=== PATIENT | female | born 1960 | race Caucasian/White ===

== ENCOUNTER → 2017-01-06 | Outpatient (CLI) | payer BC ==
[~2017-01-06] MED LIST: ALPR-385 PO; ASCA500 PO; ASPI1TAB72 PO; B-COTAB18 PO; CHOL200010 PO; FLUO20CA35 PO; MULT-884 PO; NRN300 PO; TRAM-10 PO; XPNIN INH
== END | disposition home or self-care (01) ==
LOC: C.PAPS 15:12
PROVIDERS: ATTEND Obstetrics & Gynecology
DX: Z01.419 Encounter for gynecological examination (general) (routine) without abnormal findings (principal)

== ENCOUNTER → 2017-07-12 | Outpatient (CLI) | payer OTHER | END | disposition home or self-care (01) | LOC: C.LAB 02:08 | DX: Z02.83 Encounter for blood-alcohol and blood-drug test (principal) ==

== ENCOUNTER 2023-03-15 15:47 | Inpatient (IN) ==
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
[2023-03-15 16:30] LABS: Hematocrit (blood only) 45.4 % (37.0-47.0); Hemoglobin 16.3 g/dl (12.0-16.0); Mean Corpuscular Hemoglobin 34.5 pg (25.0-34.0); Mean Corpuscular Hgb Conc 35.9 g/dL (32.0-36.0); Mean Corpuscular Volume 96.2 fL (80.0-100.0); Mean Platelet Volume 9.7 fL (9.4-12.4); Platelet Count 279 K/uL (130-400); RDW Coefficient of Variation 12.5 % (11.5-14.5); RDW Standard Deviation 44.8 fL (36.4-46.3); Red Blood Count 4.72 M/uL (4.20-5.40); White Blood Count 8.21 K/ul (4.8-10.8)
[2023-03-15 16:42] LABS: Acetaminophen < 3 ug/ml (10-30); Salicylate < 3.0 mg/dl (3.0-30)
[2023-03-15 16:45] LABS: Alanine Aminotransferase 39 U/L (7-52); Albumin Globulin Ratio 1.8 (0.9-2); Albumin Level 4.9 gm/dl (3.4-5.0); Alkaline Phosphatase 55 U/L (34-104); Anion Gap 17 (3-11); Aspartate Aminotransferase 59 U/L (13-39); BUN Creatinine Ratio 15.3 (10-20); Bilirubin,Total 0.4 mg/dl (0.2-1.0); Blood Urea Nitrogen 11 mg/dl (6-23); Calcium 9.5 mg/dl (8.6-10.3); Carbon Dioxide 21 mmol/L (21-32); Chloride 98 mmol/L (98-107); Est GFR (African American) 105.5 ml/min; Globulin 2.8 gm/dl (2.5-4.0); Glucose 70 mg/dl (70-99(Fasting)); Potassium 3.6 mmol/L (3.5-5.1); Sodium 136 mmol/L (136-145); Total Protein 7.7 gm/dl (6.0-8.3)
[2023-03-15 17:14] LABS: Basophils # (auto) 0.06 K/uL (0-0.2); Basophils % (auto) 0.7 %; Eosinophils # (auto) 0.05 K/uL (0-0.50); Eosinophils % (auto) 0.6 %; Immature Granulocytes # (auto) 0.01 K/uL (0.01-0.20); Immature Granulocytes % (auto) 0.1 %; Lymphocytes # (auto) 4.98 K/uL (1.2-3.4); Lymphocytes % (auto) 60.7 %; Monocytes # (auto) 0.55 K/uL (0.11-0.59); Monocytes % (auto) 6.7 %; Neutrophils # (auto) 2.56 K/uL (1.40-6.50); Neutrophils % (auto) 31.2 %; RBC Morphology Unremarkable
[2023-03-15] MEDS ORDERED: LORazepam 1 MG TAB SL STA ×2 (17:33→20:06)
[2023-03-15] MEDS ORDERED: LORazepam 1 MG TAB PO PRN ×3 (17:33)
[2023-03-15] MEDS ORDERED: Ativan PO Alcohol Withdrawal--Active Protocol PO PRN (17:33)
[2023-03-15] MEDS ORDERED: chlordiazePOXIDE HCl 25 MG CAP PO ONE (17:33)
[2023-03-15 20:16] LABS: Appearance Urine Clear (Clear); Bacteria Urine Automated Negative (Negative); Bilirubin Urine Negative (Negative); Blood Urine 1+ (Negative); Cast Urine Automated 0 /lpf (0-5); Color Urine Yellow; Epithelial Cell Urine Auto >30 /lpf (0-5); Glucose Urine UA Negative (Negative); Ketones Urine 1+ (Negative); Leukocyte Esterase Urine 2+ (Negative); Nitrite Urine Negative (Negative); Protein Urine Trace (Negative); RBC Urine Automated 0-4 /hpf (0-4); Specific Gravity Urine 1.009 (1.000-1.030); Urobilinogen Urine Negative (Negative); WBC Urine Automated >30 /hpf (0-5); pH Urine 5.5 (4.5-7.5)
[2023-03-15 20:47] LABS: Amphetamines+Metham, Urine Neg (Neg); Barbiturates, Urine Neg (Neg); Benzodiazepine, Urine Pos (Neg); Cocaine, Urine Neg (Neg); MDMA (Ecstacy), Urine Neg (Neg); Methadone, Urine Neg (Neg); Opiate, Urine Neg (Neg); Phencyclidine, Urine Neg (Neg)
[2023-03-16] MEDS ORDERED: LORazepam 1 MG TAB SL STA (05:36)
--- NOTE | 2023-03-16 06:23 | Emergency Department Note ---
ED Visit Note Patient signed out to me at change of shift from Dr. Bee. 302 signed and patient awaiting placement. No evidence of acute alcohol withdrawal overnight during my shift. Patient given ativan when she woke up and was agitated that she was still here and was asking for her phone. Patient signed out to Dr. Mora in the morning. .
[2023-03-16] MEDS ORDERED: NICOTINE 21 MG/24 HR TDSY TD STA (07:37)
--- NOTE | 2023-03-16 15:02 | Emergency Department Note ---
ED Visit Note Patient signed out to me at shift change. No issues. 302. Bed search still underway. Signed out to Dr. Gonzales. .
--- NOTE | 2023-03-16 15:06 | Emergency Department Note ---
ED Visit Note I received this patient at change of shift signout from Dr. Mora. Please see his note for care through the day. The patient was seen in our facility recently and presented for alcohol tox occasion as well as mental health evaluation. The patient had significant criteria and was actually made 302 petition which was upheld in the emergency department. The patient has alcohol abuse as well as homicidal ideation. The patient was medically cleared previously. At this time bed search is underway. I discussed the patient's care with nursing. They state that she has been stable with her vital signs. There are no signs of alcohol withdrawal. The patient was evaluated by 3 S. At this time I will ask for another alcohol withdrawal score to see if the patient requires any medications. Given the patient's continued withdrawal symptoms I discussed her condition with the on-call [facility] hospitalist, Dr. Julian. He has agreed to evaluate the patient in the emergency department for further management and disposition. .
[2023-03-16] MEDS ORDERED: LORazepam 1 MG TAB PO STA ×2 (15:53)
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
[2023-03-16] MEDS ORDERED: CEROVITE ADV FORMULA TAB PO STA (18:52)
[2023-03-16] MEDS ORDERED: chlordiazePOXIDE ALCOHOL WITHDRAWL 50MG PO STA (18:52)
[2023-03-16] MEDS ORDERED: Ativan IV Alcohol Withdrawal--Active Protocol IV PRN (18:52)
[2023-03-16] MEDS ORDERED: LORazepam 2 MG/1 ML VIAL IV PRN ×3 (18:52)
[2023-03-16] MEDS ORDERED: THIAMINE HCL 100 MG/ML 2 ML VIAL IM STA (18:52)
[2023-03-16] MEDS ORDERED: THIAMINE HCL 500 MG in SODIUM CHLORIDE 0.9% 50 ML IV STA (19:23)
[2023-03-16] MEDS ORDERED: THIAMINE HCL 100 MG, FOLIC ACID 1 MG in SODIUM CHLORIDE 0.9% 1000ML 1,000 ML IV SCH (20:00)
[2023-03-16] MEDS: ENOXAPARIN INJ 40 MG/0.4 ML SYR SQ SCH (20:11)
[2023-03-16] MEDS: THIAMINE HCL 100 MG in SYRINGE 9 ML IV SCH (20:12)
[2023-03-16] MEDS: chlordiazePOXIDE HCl 25 MG CAP PO SCH (20:40)
[2023-03-16 20:45] LABS: Albumin Globulin Ratio 1.9 (0.9-2); Albumin Level 4.5 gm/dl (3.4-5.0); BUN Creatinine Ratio 21.7 (10-20); Bilirubin,Total 0.5 mg/dl (0.2-1.0); Calcium 9.6 mg/dl (8.6-10.3); Est GFR (African American) 114.8 ml/min; Est GFR (Non-African American) 99.1 ml/min; Globulin 2.4 gm/dl (2.5-4.0); Potassium 3.4 mmol/L (3.5-5.1); Total Protein 6.9 gm/dl (6.0-8.3)
[2023-03-16 20:58] LABS: INR 0.9 (0.9-1.1); Prothrombin Time 9.6 Seconds (9.0-12.0)
[2023-03-17] MEDS: chlordiazePOXIDE HCl 25 MG CAP PO SCH ×4 (02:05→23:53)
[2023-03-17] MEDS: OLANZapine 10 MG/2.1 ML SDV IM PRN ×2 (06:34→17:37)
[2023-03-17] MEDS ORDERED: POTASSIUM CHLORIDE CRTAB 20 MEQ TABCR PO STA (08:36)
[2023-03-17] MEDS: THIAMINE HCL 100 MG in SYRINGE 9 ML IV SCH ×2 (08:39→15:25)
[2023-03-17] MEDS: FOLIC ACID 1 MG TAB PO SCH (08:40)
[2023-03-17] MEDS ORDERED: PNEUMOCOCCAL Polysaccharide Vaccine 25mcg/0.5mL vial/Syr IM ONE (09:00)
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
--- NOTE | 2023-03-17 10:53 | Electrocardiogram Report ---
Test Reason : Blood Pressure : / mmHG Vent. Rate : 092 BPM Atrial Rate : 092 BPM P-R Int : 132 ms QRS Dur : 086 ms QT Int : 344 ms P-R-T Axes : 076 075 -23 degrees QTc Int : 425 ms Normal sinus rhythm Nonspecific ST and T wave abnormality Abnormal ECG When compared with ECG of 05-SEP-2022 15:04, Nonspecific T wave abnormality now evident in Lateral leads Confirmed by Ga Almaguer ([id number]) on 03/17/2023 10:53:12 AM Referred By: REFERRED SELF Confirmed By:Ga Almaguer
[2023-03-17] MEDS: NICOTINE 21 MG/24 HR TDSY TD SCH (12:22)
--- NOTE | 2023-03-17 15:20 | Hospitalist Progress Note ---
Date of Service March 17, 2023 Assessment & Plan (1) Alcohol withdrawal: Plan: AWSS protocol. Continue Librium. (2) Type 2 diabetes mellitus: Plan: ADA diet. Sliding scale coverage as needed. Continue metformin (3) Dyslipidemia: Plan: Low-cholesterol diet. 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 She refuses head CT scan (6) Hypokalemia: Plan: Oral replacement therapy serial labs (7) Cachexia: Plan: BMI 17. Dietary supplements recommended Plan Anticipate eventual inpatient psychiatric admission. Appreciate psychiatry consultation and recommendations. Admission and Anticipated Discharge Date Admission Date: March 16, 2023 Subjective Alert. No acute distress. She continues to voice homicidal ideation regarding her son. Appreciate psychiatry consultation and recommendations. Potassium replacement underway. Continue alcohol withdrawal treatment. She refuses head CT scan evaluation to evaluate her anisocoria Review of Systems Review of Systems: Constitutional-no fever or chills ENT-no blurred vision, no double vision, no epistaxis, no sore throat Respiratory-no cough, no wheezing, no shortness of breath Cardiac-no palpitations, no chest pain, no syncope GI-no nausea, vomiting, diarrhea, melena, hematochezia -no urinary retention, no urinary incontinence, no dysuria, no hematuria Musculoskeletal-no joint pain, no muscle tenderness Skin-no bruising, no rashes, no pruritus Neuro-no isolated weakness, no paresthesia, no weakness Psych-homicidal ideation Physical Exam Physical Exam: General-alert and oriented x3. Cachectic-appearing no fevers HEENT-head atraumatic and normocephalic, pupils equal and reactive to light, extraocular muscles intact Neck-no lymphadenopathy or thyromegaly, trachea midline Chest-clear to auscultation percussion. No rales wheezing or rhonchi Cardiac-regular rate and rhythm, normal S1 and S2 Abdomen-normal bowel sounds, nontender, no hepatosplenomegaly Extremities-no cyanosis, clubbing, or edema Neuro-cranial nerves II through XII intact, motor and sensory function within normal limits, strength symmetrical , no focal deficits Psych-homicidal ideation toward her son Results & Data Results & Data Vital Signs (Past 12 Hours) Vital Signs Temp Pulse Pulse Resp BP Pulse Ox O2 Del Method 03/17/23 12:17 36.6 C 84 18 123/75 95 Room Air 03/17/23 07:35 79 03/17/23 07:00 36.4 C L 16 113/80 97 Room Air Laboratory Results 03/15/23 16:01 03/16/23 19:31 PG Care Time/CCT Total # of Minutes Spent Total Time Spent with Patient: Total time spent is greater than 50% in coordination of care (as documented) at patient's floor/unit and/or counseling patient: Coding Level of Care Code 37804 SUB INP/OBS CARE 3/50MIN Diagnoses Alcohol withdrawal F10.939 Type 2 diabetes mellitus E11.9 Diabetes mellitus technician terminal and repeater insulin use: without care home use Diabetes mellitus complication status: without complication Dyslipidemia E78.5 Anxiety F41.9 Anisocoria H57.02 Hypokalemia E87.6 Cachexia R64 (2) Type 2 diabetes mellitus Diabetes mellitus technician terminal and repeater insulin use: without technician terminal and repeater use Diabetes mellitus complication status: without complication Qualified Code(s): E11.9 - Type 2 diabetes mellitus without complications
[2023-03-17] MEDS: ENOXAPARIN INJ 40 MG/0.4 ML SYR SQ SCH (20:26)
[2023-03-18] MEDS: THIAMINE HCL 100 MG TAB PO SCH (08:54)
[2023-03-18] MEDS: FOLIC ACID 1 MG TAB PO SCH (08:56)
[2023-03-18] MEDS: NICOTINE 21 MG/24 HR TDSY TD SCH (08:56)
[2023-03-18] MEDS: chlordiazePOXIDE HCl 25 MG CAP PO SCH ×2 (09:01→15:53)
--- NOTE | 2023-03-18 12:16 | Psychiatric Progress Note ---
Date of Service March 18, 2023 Impression / Recommendations Impression 62 yo woman with unclear psychiatric history presenting with alcohol withdrawal, repeated homicidal threats toward her son and acute agitation. Diagnostically seems most consistent with alcohol withdrawal as well as likely acute pooja though differential remains broad. She is on a completed 302 commitment and will require psychiatric inpatient treatment once medically stable. Prior to admission Geodone and lamictal were held on admission given unclear adherence with lamictal prior to admission and risks of lowered seizure threshold with Geodone. Given her level of acute agitation felt that risks of seizure threshold are outweighed by benefits of lessening her agitation with po antipsychotic to hopefully lessen or avoid need for IM olanzapine so will restart geodon as seems this is the most likely antipsychotic po she will agree to take. Acute risk of harm to others remains high. The patient remains hospitalized on a completed 302 involuntary commitment, which if not extended, will on 03/20/23 1237. This patient must remain on safety precautions with a 1-on-1 and is unable to leave the hospital AMA. 03/18/2023: Quite dramatic change in her behavior today, calm, appropriate with questions, slightly expansive at times but much more linear and reality-based without evidence for previous paranoia. Given fairly dramatic change could certainly represent agitated delirium from alcohol use or withdrawal that is improving with medical treatment. She is still upset with her son but no statements of HI today. Able to discuss her escalation in alcohol use and willing to consider residential alcohol use treatment eventually. (1) Threatening behavior: (2) Pooja: (3) Depression with anxiety: (4) Alcohol use disorder: Plan -Requires 1-on-1 given 302 commitment -Now medically clear, bed search has been started by the delegate -May not leave AMA as she is on a completed 302 commitment, call security if she attempts to leave -Will continue Geodon 40mg HS -For behavioral emergency would use: olanzapine 10mg IM BID prn for acute agitation/aggression (DO NOT exceed 20mg in 24 hours, check EKG to ensure no QTc changes if multiple doses are required, NEVER co-administer with or within 1 hour of IM or IV benzodiazepines) Risk Factors Assessment Do You Have Access To A Gun?: Yes Protective Factors Assessment Employed: No Interval History Identifying Information 62 yo woman with history of alcohol use, JACEK, depression, and possible other psychiatric diagnoses admitted medically for concern for complicated alcohol withdrawal on a 302 commitment for HI toward her son. Psychiatry consulted for recommendations. Chief Complaint "I feel much much better today". Subjective Subjective Patient was seen & assessed and interval progress reviewed. Required IM olanzapine ~5:30pm last night. Took po Geodon last night. This morning is calm and apologizes for being "angry" yesterday. States she feels "much much better" today. No statements of HI but recalls her prior statements and says "those were just figures of speech". Asked about collateral of yelling at someone at the airport, an [employer] dedicated truck driver and someone at the grocery store she denies yelling at grocery store and states she was angry at the airport because she was traveling with her son and "he was needling me". Agrees she has an issue with alcohol and is willing to consider residential treatment. She denies any psychiatric history of bipolar disorder or schizophrenia, states she and her psychiatrist have thought that she may have "borderline" personality disorder. Reports she slept well except for a vivid nightmare that she was moving toads from a pond and on awakening wanting to wash her hands right away. Denies SI. Agrees to have head CT done. Physical Exam Psychiatric Orientation: alert and oriented x 3 Apperance: appropriately dressed and appropriately groomed Eye Contact: good eye contact Motor Behavior: no abnormal motor movements Speech: normal rate/rhythm/volume of speech Affect: + anxious affect Mood: + anxious mood; no depressed mood and no irritable mood Thought Process: linear/logical thought process Thought Content: reality based without delusions Suicidal Thoughts: denies suicidal thoughts Homicidal Thoughts: denies homicidal thoughts Hallucinations: no auditory hallucinations and no visual hallucinations Cognition: recent memory grossly intact, remote memory grossly intact, attention grossly intact and language grossly intact Estimated Intelligence: consistent with education level Insight: + fair insight Judgment: + fair judgement Vital Signs (Past 24 Hours) Last Vital Signs Temp 36.6 C 03/18/23 11:23 Pulse 86 03/18/23 11:23 Resp 19 03/18/23 11:23 BP 115/78 03/18/23 11:23 Pulse Ox 98 03/18/23 11:23 O2 Del Method Room Air 03/18/23 11:23 Results & Data ([facility]) Laboratory Results Laboratory Results - last 24 hr 03/17/23 20:40 POC Glucose 138 H Current Inpatient Medications Current Inpatient Medications: Current Inpatient Medications Chlordiazepoxide HCl (Chlordiazepoxide Hcl 25 Mg Cap) 50 mg PO Q8H [facility] Stop: 03/18/23 16:01 Last Admin: 03/18/23 09:01 Dose: 50 mg Chlordiazepoxide HCl (Chlordiazepoxide Hcl 10 Mg Cap) 10 mg PO Q12H [facility] Stop: 03/20/23 18:01 Chlordiazepoxide HCl (Chlordiazepoxide Hcl 25 Mg Cap) 25 mg PO Q8H [facility] Stop: 03/19/23 16:01 Enoxaparin Sodium (Enoxaparin Inj 40 Mg/0.4 Ml Syr) 40 mg SQ Q24H [facility] Stop: 04/15/23 20:59 Last Admin: 03/17/23 20:26 Dose: 40 mg Folic Acid (Folic Acid 1 Mg Tab) 1 mg PO QAM [facility] Stop: 04/16/23 08:59 Last Admin: 03/18/23 08:56 Dose: 1 mg Lorazepam (Lorazepam 1 Mg Tab) 2 mg PO UD PRN; Protocol PRN Reason: EtOH Withdrawal AWSS Score 8,9 Stop: 04/14/23 17:32 Lorazepam (Lorazepam 1 Mg Tab) 3 mg PO ONCE PRN; Protocol PRN Reason: EtOH Withdrawal AWSS Score 10 & above Lorazepam (Lorazepam 1 Mg Tab) 1 mg PO UD PRN; Protocol PRN Reason: EtOH Withdrawal AWSS Score 6,7 Stop: 04/14/23 17:32 Lorazepam (Lorazepam 2 Mg/1 Ml Vial) 3 mg IV ONCE PRN; Protocol PRN Reason: EtOH Withdrawal AWSS Score 10+ Lorazepam (Lorazepam 2 Mg/1 Ml Vial) 2 mg IV UD PRN; Protocol PRN Reason: EtOH Withdrawal AWSS Score 8,9 Stop: 04/15/23 18:51 Lorazepam (Lorazepam 2 Mg/1 Ml Vial) 1 mg IV UD PRN; Protocol PRN Reason: EtOH Withdrawal AWSS Score 6,7 Stop: 04/15/23 18:51 Miscellaneous (Remove Nicoderm Patch) 1 each N/A DAILY@0859 [facility] Stop: 04/15/23 08:58 Last Admin: 03/18/23 08:56 Dose: 1 each Miscellaneous (Prempro: Order Awaiting Action) 1 each N/A QS [facility] Stop: 04/16/23 00:00 Last Admin: 03/18/23 08:56 Dose: Not Given Miscellaneous (Remove Nicoderm Patch) 1 each N/A DAILY@0859 [facility] Stop: 04/17/23 08:58 Last Admin: 03/18/23 08:56 Dose: 1 each Nicotine (Nicotine 21 Mg/24 Hr Tdsy) 21 mg TD QAM [facility] Stop: 04/16/23 10:59 Last Admin: 03/18/23 08:56 Dose: 21 mg Olanzapine (Olanzapine 10 Mg/2.1 Ml Sdv) 10 mg IM BID PRN PRN Reason: risk of harm to self/others Stop: 04/15/23 20:59 Last Admin: 03/17/23 17:37 Dose: 10 mg Thiamine HCl (Thiamine Hcl 100 Mg Tab) 100 mg PO QAM [facility] Stop: 04/17/23 08:59 Last Admin: 03/18/23 08:54 Dose: 100 mg Ziprasidone (Ziprasidone Hcl 20 Mg Cap) 40 mg PO HS [facility] Stop: 04/16/23 20:59 Last Admin: 03/17/23 20:27 Dose: 40 mg Mental Health & Subst Abuse Tx Therapist Name of Therapist: [facility] Date of Therapist Appointment: 03/16/23 Post Discharge Appointments Primary Care Physician Name Of Family Doctor/PCP: Dr. Maurer
--- NOTE | 2023-03-18 13:46 | CT Scan Report ---
CT OF THE HEAD WITHOUT CONTRAST CLINICAL HISTORY: Anisocoria. COMPARISON STUDY: Head CT September 05, 2022. CT DOSE: 690.05 mGycm TECHNIQUE: Helical axial images of the head were obtained without IV contrast. Automated exposure con trol was utilized for the study. A dose lowering technique was utilized adhering to the principles o f ALARA. FINDINGS: No acute intracranial hemorrhage, midline shift or mass effect is present. The ventricular system is unremarkable. The basal cisterns are patent. No extra-axial collections are present. There are no findings to suggest acute dural sinus thrombosis or acute territorial infarct. No significant calvarial abnormalities are present. Visualized portions of the sinuses and mastoid air cells are trino ar. IMPRESSION: No acute intracranial findings. ACT 112: Negative or not required by law. Electronically signed by: Alvarado Rivera M.D. 03/18/2023 1:44 PM
--- NOTE | 2023-03-18 15:07 | Hospitalist Progress Note ---
Date of Service March 18, 2023 Assessment & Plan (1) Alcohol withdrawal: Plan: AWSS protocol. Continue Librium. No evidence of DTs at this time (2) Type 2 diabetes mellitus: Plan: ADA diet. Sliding scale coverage as needed. Continue metformin. Stable (3) Dyslipidemia: Plan: Low-cholesterol diet. 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 Head CT scan negative for any significant findings (6) Hypokalemia: Plan: Oral replacement therapy. Serial labs (7) Cachexia: Plan: BMI 17. Dietary supplements recommended Plan Anticipate eventual inpatient psychiatric admission. She is now medically cleared for placement. Appreciate psychiatry consultation and recommendations. Admission and Anticipated Discharge Date Admission Date: March 16, 2023 Subjective Alert and oriented in no acute distress. Head CT scan negative for any significant findings. Mild anisocoria is probably chronic and of no clinical significance. Psychiatry is searching for a facility for inpatient admission. Hemodynamically stable Review of Systems Review of Systems: Constitutional-no fever or chills ENT-no blurred vision, no double vision, no epistaxis, no sore throat Respiratory-no cough, no wheezing, no shortness of breath Cardiac-no palpitations, no chest pain, no syncope GI-no nausea, vomiting, diarrhea, melena, hematochezia -no urinary retention, no urinary incontinence, no dysuria, no hematuria Musculoskeletal-no joint pain, no muscle tenderness Skin-no bruising, no rashes, no pruritus Neuro-no isolated weakness, no paresthesia, no weakness Psych-homicidal ideation Physical Exam Physical Exam: General-alert and oriented x3. Cachectic-appearing no fevers HEENT-head atraumatic and normocephalic, anisocoria noted with slightly dilated right pupil compared to the left, extraocular muscles intact Neck-no lymphadenopathy or thyromegaly, trachea midline Chest-clear to auscultation percussion. No rales wheezing or rhonchi Cardiac-regular rate and rhythm, normal S1 and S2 Abdomen-normal bowel sounds, nontender, no hepatosplenomegaly Extremities-no cyanosis, clubbing, or edema Neuro-cranial nerves II through XII intact, motor and sensory function within normal limits, strength symmetrical , no focal deficits Psych-homicidal ideation toward her son Results & Data Results & Data Vital Signs (Past 12 Hours) Vital Signs Temp Pulse Resp BP Pulse Ox O2 Del Method 03/18/23 11:23 36.6 C 86 19 115/78 98 Room Air 03/18/23 08:17 36.9 C 80 19 139/92 99 Room Air 03/18/23 04:01 36.6 C 73 18 103/69 98 Room Air Laboratory Results 03/15/23 16:01 03/16/23 19:31 PG Care Time/CCT Total # of Minutes Spent Total Time Spent with Patient: Total time spent is greater than 50% in coordination of care (as documented) at patient's floor/unit and/or counseling patient: Coding Level of Care Code 85214 SUB INP/OBS CARE 3/50MIN Diagnoses Alcohol withdrawal F10.939 Type 2 diabetes mellitus E11.9 Diabetes mellitus prison insulin use: without prison use Diabetes mellitus complication status: without complication Dyslipidemia E78.5 Anxiety F41.9 Anisocoria H57.02 Hypokalemia E87.6 Cachexia R64 (2) Type 2 diabetes mellitus Diabetes mellitus prison 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
[2023-03-18] MEDS: prednisoLONE acetate 1% OP SUSP 5 ML BTL OP SCH (20:19)
[2023-03-18] MEDS: ENOXAPARIN INJ 40 MG/0.4 ML SYR SQ SCH (20:19)
[2023-03-18] MEDS: KETOROLAC 0.5% OP SOLN 5 ML BTL OP SCH (20:19)
[2023-03-19] MEDS: chlordiazePOXIDE HCl 25 MG CAP PO SCH ×2 (00:08→07:44)
[2023-03-19 00:22] LABS: 7-Aminoclonaz, Confirm NEGATIVE ng/mL (<25); Hydro-Alp Ur, GC/MS NEGATIVE ng/mL (<25); Hydroxyethylflurazepam, Conf NEGATIVE ng/mL (<50); Hydroxymidazolam Ur, GC/MS NEGATIVE ng/mL (<50); Hydroxytriazolam NEGATIVE ng/mL (<50); Lorazepam, Ur GC/MS NEGATIVE ng/mL (<50); Marijuana Quant, GCMS Urine 18 ng/mL (<5); Nordiazepam, Confirm 225 ng/mL (<50); Oxazepam Ur, GC/MS 1110 ng/mL (<50); Temazepam, Confirm 1390 ng/mL (<50)
[2023-03-19] MEDS: FOLIC ACID 1 MG TAB PO SCH (07:45)
[2023-03-19] MEDS: NICOTINE 21 MG/24 HR TDSY TD SCH (07:55)
[2023-03-19] MEDS: THIAMINE HCL 100 MG TAB PO SCH (07:56)
[2023-03-19] MEDS: KETOROLAC 0.5% OP SOLN 5 ML BTL OP SCH ×2 (08:03→13:14)
[2023-03-19] MEDS: prednisoLONE acetate 1% OP SUSP 5 ML BTL OP SCH ×2 (08:03→13:13)
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
== END 2023-03-19 14:20 | DRG 897 ==
LOC: ED 15:47 → 2S 03-16 16:57 → SUATTDRO 03-16 16:57 → 2S 03-16 17:55